=== PATIENT | male | born 1995 | race Caucasian/White ===

== ENCOUNTER 2023-08-01 13:08 | Emergency (ER) | payer BC ==
[~2023-08-01] VITALS: Ht 185.4 cm; Wt 111.1 kg
[2023-08-01 13:19] VITALS: BP 143/81; PULSE 99; RESP 22; TEMP 98.3; O2SAT 98
[2023-08-01 14:02] LABS: APPEARANCE,URINE CLEAR (CLEAR); BILIRUBIN,URINE NEGATIVE (NEGATIVE); BLOOD, URINE NEGATIVE (NEGATIVE); COLOR,URINE YELLOW (YELLOW); LEUKOCYTE ESTERASE ,URINE NEGATIVE (NEGATIVE); NITRITE, URINE NEGATIVE (NEGATIVE); PROTEIN,URINE TRACE (NEGATIVE); UGLUCOSE NEGATIVE (NEGATIVE); UROBILINOGEN,URINE 0.2 EU/dL (0.2 - 1)
[2023-08-01 14:58] VITALS: BP 131/60; PULSE 70; RESP 18; TEMP 98.3; O2SAT 97
== END 2023-08-01 15:00 | disposition home or self-care (01) ==
LOC: MED 13:08
DX: T40.414A Poisoning by fentanyl or fentanyl analogs, undetermined, initial encounter (principal); F17.200 Nicotine dependence, unspecified, uncomplicated; Z98.890 Other specified postprocedural states; Y92.89 Other specified places as the place of occurrence of the external cause
CPT/HCPCS: 81003; 99283